=== PATIENT | male | born 1985 | race Caucasian/White ===

== ENCOUNTER 2025-08-23 13:51 | Emergency (ER) | payer BC, OTHER, SELFPAY ==
[2025-08-23 14:01] VITALS: BP 115/66; PULSE 83; RESP 16; TEMP 36.7; O2SAT 99
--- NOTE | 2025-08-23 14:07 | ED.URI ---
HPI - URI/Sore Throat General Chief Complaint: Upper Respiratory Infection Stated Complaint: Cough Time Seen by Provider: 08/23/25 14:07 Source: patient Mode of arrival: ambulatory Limitations: no limitations History of Present Illness HPI Narrative: 40-year-old male presents with complaint of cough, nasal congestion for 5 days. Afebrile. No fatigue, body aches or chills. Taking wcku-uce-fzscxuz cough medication to treat symptoms. Reports dried blood to left ear yesterday. Concerned he may have nasal infection . No chest pain or shortness breath. All systems reviewed and negative except as noted above. Related Data Allergies Allergy/AdvReac Type Severity Reaction Status Date / Time No Known Allergies Allergy Verified 08/23/25 14:01 [facility], [facility] Comments At time of signature, agree with nursing past medical, surgical, social and family history. There is no relevant family history pertinent to the presenting complaint. Exam Narrative: GENERAL: This is a well-nourished, well-developed patient, in no apparent distress. HEAD: normocephalic, atraumatic. EYES: PERRL. Sclera clear/white. Vision is grossly intact. EARS: External ears normal, auditory canals clear and without drainage, TMs normal without perforation. Hearing grossly intact. NOSE: External nose normal with no obvious nasal discharge, nares without redness, no rhinorrhea. THROAT: Mucous membranes moist, posterior pharynx clear. NECK: Neck supple, non-tender without lymphadenopathy, masses or thyromegaly. CARDIOVASCULAR: Regular rate and rhythm without murmurs, gallops, or rubs. RESPIRATORY: Clear to auscultation. Breath sounds equal bilaterally. No wheezes, rales, or rhonchi. SKIN: warm, Dry, intact with no suspicious lesions or rash, good texture and turgor. NEURO: awake, alert, and oriented to person, place and time. There were no obvious focal neurologic abnormalities. EXTREMITIES: No joint tenderness, effusion, or edema noted. Course Course Level of Care: Express Care Visit Vital Signs Vital signs: Vital Signs Temperature 36.7 C 08/23/25 14:01 Pulse Rate 83 08/23/25 14:01 Respiratory Rate 16 08/23/25 14:01 Blood Pressure 115/66 08/23/25 14:01 Pulse Oximetry 99 08/23/25 14:01 Oxygen Delivery Room Air 08/23/25 14:01 Temperature 36.7 C 08/23/25 14:01 Pulse Rate 83 08/23/25 14:01 Respiratory Rate 16 08/23/25 14:01 Blood Pressure 115/66 08/23/25 14:01 Pulse Oximetry 99 08/23/25 14:01 Oxygen Delivery Room Air 08/23/25 14:01 Reviewed MDM - URI/Sore Throat MDM Narrative Medical decision making narrative: patient is well-appearing, nontoxic. Normal exam. Lungs are clear to auscultation. Recommend ouny-fwo-jcagnjo medications to treat viral symptoms. Differential Diagnosis Differential diagnosis: Likely upper respiratory infection, sinusitis, viral infection and bronchitis Discharge Plan Discharge Clinical Impression: Viral upper respiratory tract infection with cough Patient Disposition: Home Condition: Stable Instructions: Upper Respiratory Infection (ED) Additional Instructions: Take medications as prescribed. Your symptoms are viral and may last 10-14 days. Drink at least 64 oz of water a day. Place cool mist humidifier in bedroom where you sleep. Follow-up with your primary care physician if symptoms are not improving. Patient Language: Israeli Prescriptions: New benzonatate 200 mg capsule 200 mg PO TID PRN (Reason: cough) Qty: 20 0RF methylprednisolone [Medrol (Don)] 4 mg tablets,dose pack See Rx Instructions PO .COMPLEX Qty: 21 0RF Rx Instructions: orally per package directions Follow-up/Referrals: PHYSICIAN,CABLE TELEVISION INSTALLER [Primary Care Provider, Internal Medicine] Time of Disposition: 14:17
--- OUTSIDE RECORDS SUMMARY | 2025-08-23 16:09 | XMS_ITS | Clinical Summary ---
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 Gender Identity Not on file Sexual Orientation Not on file Plan of Treatment Health Maintenance Due Date Last Done Comments Hepatitis C Virus (HCV) Screening 1987 TdaP Immunization 1987 Hepatitis B Immunization (1 of 3 - 19+ 3-dose series) 2006 Human Papillomavirus (HPV) Immunization (1 - 3-dose SCDM series) 2014 Influenza Immunization (#1) 07/10/202508/09, 08/13/2017, 08/22/2015 SARS-COV-2 Immunization ( season) 2025 Respiratory Syncytial Virus (RSV) Immunization (Adult) (1 - 1-dose 75+ series) 2062 Meningococcal Immunization (ACWY) Aged Out No longer eligible b ased on patient's age to complete this topic Pneumococcal Immunization Combined Aged Out No longer eligible b ased on patient's age to complete this topic Rotavirus Immunization Aged Out No lo nger eligible based on patient's age to complete this topic
--- OUTSIDE RECORDS SUMMARY | 2025-08-23 16:09 | XMS_ITS | Clinical Summary ---
Author Organization [facility] Address [address] [place] [address] Care Team Providers Care Glucose And Syrup Weigher Name Role Phone Unavailable Primary Care Provider Unavailabl e Social History Tobacco Use Types Packs/Day Years Used Date Smoking Tobacco: Never Assessed Sex and Gender Information Value Date Recorded Sex Assigned at Not on file Legal Sex Male 9:44 AM CDT Gender Identity Not on file Sexual Orientation Not on file Plan of Treatment Health Maintenance Due Date Last Done Comments DTAP/TDAP/TD VACCINES (1 - Tdap) 2006 HEPATITIS B VACCINES (1 of 3 - 19+ 3-dose series) 06/09 HPV VACCINES (1 - 3-dose SCDM series) 2014 INFLUENZA VACCINE (#1) 2025 Insurance [employer]
--- OUTSIDE RECORDS SUMMARY | 2025-08-23 16:09 | XMS_ITS | Clinical Summary ---
Author Organization [facility] [address] Address [address] [place] [address] Care Team Providers Care Fender Repairer Name Role Phone Da Jackson MD Primary Care Provider [phone] Allergies No known active allergies Medications No known medications Active Problems Problem Noted Date Diagnosed Date Foreign body of left ear 05/02/2024 Left ear pain 05/02/2024 Surgical History Surgery Date Site/Laterality Comments LASIK HYDROCELE EXCISION / REPAIR Medical History Medical History Date Comments Foreign body in left ear Tinnitus Family History Medical History Relation Name Comments No Known Problems Father Alzheimer's disease Maternal Grandmother No Known Problems Mother Relation Name Status Comments Father Maternal Grandmother Mother Social History Tobacco Use Types Packs/Day Years Used Date Smoking Tobacco: Former Cigarettes Smokeless Tobacco: Never Tobacco Cessation:Counseling Given: Not Answered Personal Safety Answer Date Recorded Getting School Help Needed Not on file 04/28 Sex and Gender Information Value Date Recorded Sex Assigned at Not on file Legal Sex Male 4:04 PM CDT Gender Identity Not on file Sexual Orientation Not on file Obstetrics History Last Filed Vital Signs Vital Sign Reading Time Taken Comments Blood Pressure - - Pulse - - Temperature - - Respiratory Rate 17 05/02/2024 1:08 PM CDT Oxygen Saturation - - Inhaled Oxygen Concentration - - Weight 72.6 kg (160 lb) 05/02/2024 1:08 PM CDT Height 170.2 cm (5' 7) 05/02/2024 1:08 PM CDT Body Mass Index 25.06 05/02/2024 1:08 PM CDT Plan of Treatment Health Maintenance Due Date Last Done Comments Depression Screening 1987 Hepatitis C Screening 1987 DTaP/Tdap/Td Vaccine (1 - Tdap) 1998 Varicella Vaccines (1 of 2 - 13+ 2-dose series) 2000 Hepatitis B Screening 2005 Regular Well Visit/Exam 18-64 2005 HPV Vaccines (1 - 3-dose SCDM series) 2014 Influenza Vaccine (#1) 2025 9, 08/13/2017, 11/09/2015, Additional history exists Pneumococcal vaccine <65 Aged Out No longer eligible based on patient's age to complete this topic [place] [address] [address] [facility] Care Teams Fender Repairer Relationship Specialty [place] [address] [place] [address] PCP - General Family Practice 04/28/24
--- OUTSIDE RECORDS SUMMARY | 2025-08-23 16:09 | XMS_ITS | Clinical Summary ---
Author Organization [facility] Address [address] [place] [id number] Care Team Providers Care Fiber Product Cutting Machine Operator Name Role Phone Da Jackson MD Primary Care Provider [phone] Allergies No known active allergies Medications traMADol (ULTRAM) 50 MG tablet Take 50 mg by mouth every 6 (six) hours as needed. 07/30/2022 Active trimethoprim-diandra ymyxin b (POLYTRIM) ophthalmic solution Place 1 drop into the left eye every 4 (four) hours. 10/23/2023 Active Active Problems No known active problems Immunizations Immunization Administration Dates Next Due Influenza (Generic) 08/13/2017,11/09/2015,2014 Influenza Adult (Generic) 08/26/2019 Family History Medical History Relation Comments Heart Disease Father No Known Problems Mother Relation Status Comments Father Alive Mother Alive Social History Tobacco Use Types Packs/Day Years Used Date Smoking Tobacco: Former Smokeless Tobacco: Current Last attempted to quit: 2018 Tobacco Cessation:Ready to Q uit: No; Counseling Given: Yes Comments:suresh [place] currently Alcohol Use Standard Drinks/Week Comments Yes 0 (1 standard drink = 0.6 oz pur e alcohol) rarely PHQ-2 Answer Date Recorded PHQ-2 Score - If the patient scores above 3, please move on to questions 3-9 0 08/11/2022 Sex and Gender Information Value Date Recorded Sex Assigned at Not on file Legal Sex Male 10:32 AM CDT Gender Identity Not on file Sexual Orientation Not on file Last Filed Vital Signs Vital Sign Reading Time Taken Comments Blood Pressure 113/72 04/28/2024 12:05 PM CDT Pulse 68 04/28/2024 12:05 PM CDT Temperature 36.7 C (98.1 F) 04/28/2024 12:05 PM CDT Respiratory Rate 18 04/28/2024 12:05 PM CDT Oxygen Saturation 98% 04/28/2024 12:05 PM CDT Inhaled Oxygen Concentration - - Weight 75.8 kg (167 lb) 04/28/2024 12:05 PM CDT Height 167.6 cm (5' 6) 04/28/2024 12:05 PM CDT Body Mass Index 26.95 04/28/2024 12:05 PM CDT Plan of Treatment Health Maintenance Due Date Last Done Comments Hepatitis C 2005 DTaP, Tdap and Td Vaccines (1 - Tdap) 2006 Hepatitis B Vaccines (1 of 3 - 19+ 3-dose series) 2006 HPV Vaccines (1 - 3-dose SCDM series) 2014 Annual Physical 08/11/2023 08/11/2022 PHQ-2 (Physician [facility]) 11/09/2024 COVID-19 Vaccine ( - season) 2025 Influenza Adult (#1) 2025 08/26/2019, 08/13/2017, 11/09/2015, Additional history exists Hepatitis A Vaccines Aged Out No long er eligible based on patient's age to complete this topic Meningococcal B Vaccine Aged Out No l onger eligible based on patient's age to complete this topic Meningococcal Vaccine Aged Out No ceferino arti eligible based on patient's age to complete this topic Pneumococcal Vaccine: Pediatrics (0 to 5 Years) and At-Risk Patients (6 to 49 Years) Aged Out No longer eligible based on patient's age to complete this topic RSV Immunizations Under 20 Months Aged Out No longer eligible based on patient's age to complete this topic Insurance Care Teams Fiber Product Cutting Machine Operator Relationship Specialty [place] [address] [place] [address] PCP - General FAMILY PRACTICE 08/11/22
== END 2025-08-23 14:19 | disposition home or self-care (01) ==
PROVIDERS: Emergency Provider Nurse Practitioner Family
DX: J06.9 Acute upper respiratory infection, unspecified (principal); R05.9 Cough, unspecified
CPT/HCPCS: 99203; G0463